=== PATIENT | male | born 1945 | race Caucasian/White ===

== ENCOUNTER → 2016-08-09 | Day surgery (SDC) | payer OTHER, MEDICARE ==
[~2016-08-09] VITALS: Ht 167.6 cm; Wt 81.6 kg
[~2016-08-09] MED LIST: ASPIR 8181 MG PO; AUGMENTIN 875875 MG PO; BACTRIM DS TAB1 EACH PO; Benadryl TOP; CO Q-10100 MG PO; COZAAR 50MG TAB50 MG PO; DIAZEPAM5 M1 PO; FENOFIBRATE160 MG PO; HYDROCODON-ACE1 EAC2 PO; KEFLEX500 M1 PO; LOSARTAN POTASS25 MG PO; LOSARTAN POTASS50 M1 PO; LOSARTAN POTASS50 MG PO; MAGNESIUM OXID400 M1 PO; METFORMIN ER500 MG PO; METFORMIN HCL500 M4 PO; Nasal NAS; OMEPRAZOLE40 M1 PO; PRAVASTATIN SOD40 M2 PO; PRAVASTATIN SOD40 MG PO; PRILOSEC40 MG PO; TYLENOL500 MG PO; VITAMIN D1000 IU PO; VITAMIN D31000 IU PO; VITAMIN D32000 UNIT PO; VITAMIN E400 UNI2 PO; ZOFRAN ODT4 MG PO
--- NOTE | 2016-08-09 09:08 | Operative Report ---
Operative/Inv Procedure Report Surgery Date: 08/09/16 Name of Procedure: Cataract extraction lens implantation right eye Pre-Operative Diagnosis: Age-related cataract right eye 20/30 vision 20/70 glare vision Post-Operative Diagnosis: Same Estimated Blood Loss: none Surgeon/Mortuary Beautician: GAMALIEL MOREIRA,RACHEL Bennett Anesthesia: local monitored anesthesi Complications: None Operative/Procedure Note Note: The patient was brought to the operating room standard monitoring equipment was attached the patient was prepped and draped in the usual fashion for intraocular surgery. A lid speculum was placed to retract the lids. The case was begun by making 2 partial-thickness corneal relaxing incisions at 77. A temporal incision with a 2.4 mm keratome. The eye was stabilized with a Zhang ring during this incision. 1 mL of non-preserved lidocaine was introduced into the anterior chamber to provide anesthesia. The anterior chamber was then filled and deepened with viscoelastic. A curvilinear capsulorrhexis was achieved using a 30-gauge needle and is a cystotome and capsulorrhexis was finished using a Utrata forceps. A second or paracentesis incision was made temporally with a 1 mm MVR blade. The lens was then hydrodissected with balanced salt solution and found to be rotatable. The lens was emulsified using phacoemulsification and a modified four-quadrant cracking technique. The residual cortical material was removed using automated irrigation and aspiration and as much of the anterior capsular rim was cleaned as well as possible. The posterior capsule was cleaned first with the automated machine on a low setting and then manually with a Just[employer] squeegee. The capsular bag was deepened with viscoelastic. The lens a Technis 1 17.0 Diopter placed into the bag under direct visualization and rotated so that the haptics were at 12 and 6:00. Viscoelastic was then removed from the eye by flushing it out and then by automated irrigation and aspiration. The eye was pressurized to a normal tone. 1/10 of a cc of vancomycin solution was introduced into the anterior chamber to provide antibiotic prophylaxis. The wounds were sealed by hydrating the stroma adjacent to them and the eye was left at a proper tone after the wounds were checked and found not to be leaking. The lid speculum was removed from the orbit. Antibiotic and steroid drops were placed on the eye and then the eye was shielded. Monitoring equipment was removed from the patient and the patient was removed from the operative suite to the holding area. The patient tolerated the procedure well and will be seen in the office tomorrow.
== END ==
LOC: STS 01:15
DX: H25.9 Unspecified age-related cataract (principal); E11.9 Type 2 diabetes mellitus without complications; Z79.84 Long term (current) use of oral hypoglycemic drugs; Z87.891 Personal history of nicotine dependence
CPT/HCPCS: J2250; V2632